=== PATIENT | female | born 1975 | race Caucasian/White ===

== ENCOUNTER 2020-11-17 11:13 | Emergency (ER) | payer OTHER ==
[~2020-11-17] VITALS: Ht 160 cm; Wt 113.4 kg
[2020-11-17] MEDS ORDERED: GABAPENTIN300 MG PO (12:07)
[2020-11-17] MEDS ORDERED: ABILIFY10 MG PO (12:07)
[2020-11-17] MEDS ORDERED: ALL DAY ALLERGY10 M3 PO (12:08)
== END 2020-11-17 16:15 | disposition home or self-care (01) ==
LOC: ED 11:13
DX: U07.1 COVID-19 (principal); E66.9 Obesity, unspecified; J45.909 Unspecified asthma, uncomplicated; Z87.442 Personal history of urinary calculi; Z88.6 Allergy status to analgesic agent; Z79.899 Other long term (current) drug therapy
CPT/HCPCS: 81001; 99283-25; C9803; M0243; Q0244; U0003